=== PATIENT | male | born 1980 | race Caucasian/White ===

== ENCOUNTER 2018-01-11 09:31 | Emergency (ER) | payer OTHER ==
[~2018-01-11] VITALS: Ht 165.1 cm; Wt 45.0 kg
[~2018-01-11 09:31] MED LIST: LANTUS2P SQ; LOSA50TA PO; NAPR500T2 PO
[2018-01-11 09:57] VITALS: BP 112/76; PULSE 76; RESP 19; TEMP 98.2; O2SAT 99
[2018-01-11] MEDS ORDERED: NOVOINJ3 SQ (10:05)
--- NOTE | 2018-01-11 10:46 | PD ---
HPI Chief Complaint: Medical Clearance Time Seen by Provider: 09:48 Travel History International Travel<30 days: No Contact w/Intl Traveler<30days: No Traveled to known affect area: No History of Present Illness HPI 37-year-old male arrives complaining of intoxication with Subutex. He has chronic pain, diabetes and opiate addiction. He arrives as a bojorquez alert after he was found intoxicated in public. He denies suicidal homicidal ideation. He requests something to drink. No other medical complaints or psychiatric complaint is offered. PFSH Past Medical History Arthritis: No Autoimmune Disease: No Anxiety: Yes Depression: Yes Heart Rhythm Problems: No Cancer: No Cardiovascular Problems: Yes High Cholesterol: Yes Congestive Heart Failure: No Cerebrovascular Accident: No Diabetes: Yes Patient Takes Glucophage: No Diminished Hearing: No Endocrine: Yes Gastrointestinal Disorders: Yes (celiac disease) GERD: No Genitourinary: Yes (left kidney small) Hepatitis: Yes (C) Hiatal Hernia: No Hypertension: Yes Immune Disorder: Yes (CELIAC DISEASE) Musculoskeletal: Yes Neurologic: Yes (peripheral neuropathy) Psychiatric: Yes Respiratory: No Migraines: Yes Pancreatitis: Yes Seizures: No Thyroid Disease: No Ulcer: No Past Surgical History Surgical History: No Previous Surgery Other Surgery: No Social History Alcohol Use: No (denies) Tobacco Use: Yes (1/2ppd) Substance Use: No (denies) Allergies-Medications (Allergen,Severity, Reaction): Coded Allergies: gluten (Unverified Allergy, Severe, 01/11/18) benazepril (Unverified Allergy, Unknown, 01/11/18) captopril (Unverified Allergy, Unknown, 01/11/18) enalaprilat (Unverified Allergy, Unknown, 01/11/18) fosinopril (Unverified Allergy, Unknown, 01/11/18) lisinopril (Unverified Allergy, Unknown, 01/11/18) quinapril (Unverified Allergy, Unknown, 01/11/18) haloperidol (Unverified Adverse Reaction, Severe, 01/11/18) distonic reaction per patient Reported Meds & Prescriptions Reported Meds & Active Scripts Active Naproxen 500 Mg Tab 500 Mg PO BID Reported Novolog Flexpen Inj (Insulin Aspart) 300 Unit/3 Ml Pen 1 Units SQ ACHS SLIDING SCALE Losartan (Losartan Potassium) 50 Mg Tab 50 Mg PO DAILY Lantus Inj (Insulin Glargine) 1,000 Unit/10 Ml Vial 20 Units SQ BID Review of Systems Except as stated in HPI: all other systems reviewed are Neg General / Constitutional: No: Fever, Chills Physical Exam Narrative GENERAL: 37-year-old male well-nourished well-developed no acute distress speaking sentences Vital Signs Date Time Temp Pulse Resp B/P (MAP) Pulse Ox O2 Delivery O2 Flow Rate FiO2 01/11/18 09:57 98.2 76 19 112/76 (88) 99 SKIN: Warm and dry. HEAD: Atraumatic. Normocephalic. EYES: Pupils equal and round. No scleral icterus. No injection or drainage. ENT: No nasal bleeding or discharge. Mucous membranes pink and moist. NECK: Trachea midline. No JVD. CARDIOVASCULAR: Regular rate and rhythm. RESPIRATORY: No accessory muscle use. Clear to auscultation. Breath sounds equal bilaterally. GASTROINTESTINAL: Abdomen soft, non-tender, nondistended. Hepatic and splenic margins not palpable. MUSCULOSKELETAL: Extremities without clubbing, cyanosis, or edema. No obvious deformities. NEUROLOGICAL: Awake and alert. No obvious cranial nerve deficits. Motor grossly within normal limits. Five out of 5 muscle strength in the arms and legs. Normal speech. PSYCHIATRIC: No suicidal or homicidal ideation. No apparent response to internal stimulus. Data Data Last Documented VS Vital Signs Date Time Temp Pulse Resp B/P (MAP) Pulse Ox O2 Delivery O2 Flow Rate FiO2 01/11/18 09:57 98.2 76 19 112/76 (88) 99 Orders Orders Blood Glucose (01/11/18 09:59) [facility] Medical Decision Making Medical Screen Exam Complete: Yes Emergency Medical Condition: Yes Medical Record Reviewed: Yes Differential Diagnosis chronic pain, subutex intoxication, opioid dependence, si/hi Narrative Course Prior psychiatric documentation reveals the patient did not meet inpatient criteria following alleged suicidal ideation. The patient at that time was abusing drugs and felt like she walked into traffic. The patient has never been hospitalized. The patient has never had a suicide attempt. Patient has a fingerstick glucose here at 230. The patient has no indication for psychiatric evaluation as a Bojorquez Act will be lifted by the undersigned. Diagnosis Primary Impression: Opioid dependence Qualified Codes: F11.20 - Opioid dependence, uncomplicated Additional Impression: Chronic pain Qualified Codes: G89.29 - Other chronic pain Referrals: [facility] for appointment Disposition: 01 DISCHARGE HOME Condition: Teddy Gutierres MD Jan 11, 2018 10:46
[2018-01-11 14:00] VITALS: BP 109/67; PULSE 72; RESP 19; O2SAT 98
[2018-01-11 15:25] VITALS: BP 111/58; PULSE 70; RESP 16; O2SAT 99
== END 2018-01-11 19:14 | disposition home or self-care (01) ==
LOC: NEPD 09:31 → NEDAMB 19:14
DX: F11.20 Opioid dependence, uncomplicated (principal); G89.29 Other chronic pain; F17.200 Nicotine dependence, unspecified, uncomplicated; E11.9 Type 2 diabetes mellitus without complications; Z79.4 Long term (current) use of insulin
CPT/HCPCS: 99284

== ENCOUNTER 2018-01-11 20:30 | Emergency (ER) | payer OTHER ==
[~2018-01-11] VITALS: Ht 165.1 cm; Wt 68.0 kg
[~2018-01-11 20:30] MED LIST changes: +NOVOINJ3 SQ
[2018-01-11 21:55] VITALS: BP 148/91; PULSE 84; RESP 16; TEMP 97.4; O2SAT 98
[2018-01-11 22:47] LABS: AUTOMATED NEUTROPHIL # 3.4 TH/MM3 (1.8-7.7); BASOPHIL # 0.2 TH/MM3 (0-0.2); BASOPHIL % 2.7 % (0.0-2.0); EOSINOPHIL # 0.7 TH/MM3 (0-0.4); EOSINOPHIL % 10.6 % (0.0-4.0); HEMATOCRIT 36.7 % (39.0-51.0); HEMOGLOBIN 12.3 GM/DL (13.0-17.0); LYMPH % 28.7 % (9.0-44.0); LYMPHOCYTE # 1.9 TH/MM3 (1.0-4.8); MEAN CELL VOLUME 88.8 FL (80.0-100.0); MEAN CORPUSCULAR HEMOGLOBIN 29.6 PG (27.0-34.0); MEAN CORPUSCULAR HGB CONC 33.4 % (32.0-36.0); MEAN PLATELET VOLUME 8.5 FL (7.0-11.0); MONO % 7.4 % (0.0-8.0); MONOCYTE # 0.5 TH/MM3 (0-0.9); NEUT % 50.6 % (16.0-70.0); PLATELET COUNT 240 TH/MM3 (150-450); RED BLOOD COUNT 4.14 MIL/MM3 (4.50-5.90); RED CELL DISTRIBUTION WIDTH 14.3 % (11.6-17.2); WHITE BLOOD COUNT 6.7 TH/MM3 (4.0-11.0)
--- NOTE | 2018-01-11 22:48 | RADRPT ---
EXAM DATE/TIME: 01/11/2018 22:10 [facility] COMPARISON: CHEST PA & LAT, March 09, 2015, 20:56. INDICATIONS : Chest pain and shortness of breath. MEDICAL HISTORY : Cardiac arrest. SURGICAL HISTORY : ENCOUNTER: Initial ACUITY: 1 day PAIN SCORE: 3/10 LOCATION: chest FINDINGS: PA and lateral views of the chest demonstrate the lungs to be symmetrically aerated without evidence of mass, infiltrate or effusion. The cardiomediastinal contours are unremarkable. Osseous structure s are intact. CONCLUSION: No acute disease. Kiran Srinivasan MD FACR on January 11, 2018 at 22:45 Board Certified Radiologist. This report was verified electronically.
[2018-01-11 23:14] LABS: BICARBONATE 23.5 MEQ/L (21.0-32.0); BLOOD UREA NITROGEN 44 MG/DL (7-18); CALCIUM 8.6 MG/DL (8.5-10.1); CHLORIDE 105 MEQ/L (98-107); CREATININE 2.41 MG/DL (0.60-1.30); GLOMERULAR FILTRATION RATE 30 ML/MIN (>89); GLUCOSE,RANDOM 440 MG/DL (74-106); SODIUM (NA) 137 MEQ/L (136-145); TROPONIN I LESS THAN 0.02 NG/ML (0.02-0.05)
--- NOTE | 2018-01-12 13:55 | EKG ---
Date Performed: 01/11/2018 Time Performed: 22:29:52 PTAGE: 37 years EKG: Sinus rhythm MINIMAL VOLTAGE CRITERIA FOR LVH, CONSIDER NORMAL VARIANT Since previous tracing, no significant tae nge noted BORDERLINE ECG PREVIOUS TRACING : 09/28/2016 17.02 DOCTOR: Chloe Goldberg Interpretating Date/Time 01/12/2018 13:54:19
== END 2018-01-12 00:10 | disposition left against medical advice (07) ==
LOC: NETRI 20:30
DX: R07.9 Chest pain, unspecified (principal)
CPT/HCPCS: 71046; 80048; 82550; 82552; 84484; 85025; 93005; 99281